=== PATIENT | male | born 1995 | race Caucasian/White ===

== ENCOUNTER 2019-08-27 10:09 | Emergency (ER) | payer BC ==
[~2019-08-27] VITALS: Ht 190.5 cm; Wt 81.2 kg
[2019-08-27 10:14] VITALS: Ht 190.5 cm; Wt 81.2 kg
[2019-08-27 12:50] VITALS: BP 124/82
== END 2019-08-27 12:50 | disposition home or self-care (01) ==
LOC: ED 10:09
DX: S52.002A Unspecified fracture of upper end of left ulna, initial encounter for closed fracture (principal); S63.502A Unspecified sprain of left wrist, initial encounter; V00.131A Fall from skateboard, initial encounter; Y93.51 Activity, roller skating (inline) and skateboarding; Y92.89 Other specified places as the place of occurrence of the external cause; Y99.8 Other external cause status
CPT/HCPCS: J1885